=== PATIENT | female | born 1965 | race African-American/Black ===

== ENCOUNTER 2017-05-01 08:30 | Emergency (ER) | payer OTHER ==
[~2017-05-01] VITALS: Ht 165.1 cm; Wt 96.2 kg
[2017-05-01 10:16] LABS: BASO # 0.1 x10^3/uL (0.0-0.2); BASO % 1 % (0-3); EOS % 4 % (0-3); HEMATOCRIT 43.7 % (36.0-47.0); LYMPH # 2.4 x10^3/uL (1.0-4.8); LYMPH % 32 % (24-48); MEAN CORPUSCULAR HEMOGLOBIN 33 pg (25-35); MEAN CORPUSCULAR HGB CONC 34 g/dL (31-37); MEAN CORPUSCULAR VOLUME 96 fL (79-100); MONO % 8 % (0-9); NEUT % 55 % (31-73); PLATELET COUNT 215 x10^3/uL (140-400); RED BLOOD COUNT 4.57 x10^6/uL (3.50-5.40); RED CELL DISTRIBUTION WIDTH 12.2 % (11.5-14.5); WHITE BLOOD COUNT 7.6 x10^3/uL (4.0-11.0)
--- NOTE | 2017-05-01 10:24 | EKG ---
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
[2017-05-01 10:25] LABS: CALCIUM 10.1 mg/dL (8.5-10.1); GFR 70.5; POTASSIUM 4.4 mmol/L (3.5-5.1)
--- NOTE | 2017-05-01 10:25 | RAD ---
CT scan of the head without contrast 05/01/2017 Clinical history: Dizziness. Technique: Unenhanced, contiguous, 5 mm axial sections were obtained through the head. One or more of the following individualized dose reduction techniques were utilized for this study: 1. Automated exposure control. 2. Adjustment of the mA and/or kV according to patient size. 3. Use of iterative reconstruction technique. Findings: The ventricles and sulci are within normal limits in size and configuration. No area of abnormal attenuation is involving the brain parenchyma. No extra-axial fluid collection is seen. No skull fracture is noted. Impression: Negative study.
--- NOTE | 2017-05-01 10:27 | RAD ---
Exam performed: One view chest. Indication: dizziness Date of Service: 05/01/2017 11:48 AM Comparison: None available. Single AP upright portable view chest findings: Cardiomediastinal silhouette is within limits of normal. No acute infiltrates, effusion or pneumothorax is detected. The bony structures are normal. Impression: No acute cardiopulmonary process is detected.
[2017-05-01 10:31] LABS: ALBUMIN 3.5 g/dL (3.4-5.0); DIRECT BILIRUBIN 0.1 mg/dL (0.0-0.2); TOTAL BILIRUBIN 0.5 mg/dL (0.2-1.0); TOTAL PROTEIN 7.9 g/dL (6.4-8.2)
[2017-05-01 10:35] LABS: BILIRUBIN,URINE NEGATIVE (NEG); GLUCOSE,URINE NEGATIVE (NEG); NITRITE,URINE NEGATIVE (NEG); PH,URINE 5.5; PROTEIN,URINE NEGATIVE (NEG-TRACE); UROBILINOGEN,URINE 0.2 mg/dL (0.2 mg/dL)
[2017-05-01 10:48] VITALS: BP 153/79
[2017-05-01 10:51] LABS: BACTERIA,URINE MANY /HPF (0-FEW); RBC,URINE OCC /HPF (0-2); SQUAMOUS EPITHELIAL CELL,UR MANY /LPF; WBC,URINE 20-40 /HPF (0-4)
--- NOTE | 2017-05-01 11:01 | PHYS DOC ---
Past Medical History Past Medical History: Other Additional Past Medical Histor: borderline kidney disease, pancreatic cyst Past Surgical History: Other Additional Past Surgical Histo: exploratory laproscopy, eye surgery Alcohol Use: Occasionally Drug Use: None Adult General Chief Complaint Chief Complaint: DIZZY/LIGHT HEADED HPI HPI 51-year-old female presenting to the emergency department today with generalized dizziness and lightheadedness when she stands up. This is been present for about the past few days. She denies vertigo. The dizziness is intermittent. Worse when she stands up and alleviated by rest. She denies vision changes or weakness of her extremities. Review of systems is negative for vision changes confusion slurred speech facial drooping. She denies chest pain or shortness of breath. All other review of systems is negative unless otherwise noted in history of present illness. ED course: 51-year-old female presenting to the emergency department with lightheadedness when she stands up. Vital signs unremarkable. Head CT EKG and blood work obtained which were unremarkable other than hyperglycemia new onset diabetes as the patient has never been diagnosed with diabetes prior. She also has mild possible urinary tract infection. We'll follow culture. For now we will give the patient a short course of metformin to follow up with her primary care doctor in the next few days and Macrobid for her urinary tract infection. She was feeling much better on reexamination and on telemetry monitoring in the emergency room department did not demonstrate any evidence of dysrhythmias. The patient was then discharged home in stable condition to follow up with their primary care physician over the next 2-3 days. They were to return if their symptoms worsened or if they were concerned for any reason. [id number] discharge instructions and return precautions were given. Patient's questions were answered to their satisfaction. Patient is comfortable plan. Review of Systems Review of Systems SEE ABOVE. Allergies Allergies Allergies Coded Allergies Type Severity Reaction Last Updated Verified No Known Drug Allergies 05/01/17 No Physical Exam Physical Exam SEE ABOVE Constitutional: Well developed, well nourished, no acute distress, non-toxic appearance. HENT: Normocephalic, atraumatic, bilateral external ears normal, oropharynx moist, no oral exudates, nose normal. [] Eyes: PERRLA, EOMI, conjunctiva normal, no discharge. Neck: Normal range of motion, no tenderness, supple, no stridor. [] Cardiovascular:Heart rate regular rhythm, no murmur Lungs & Thorax: Bilateral breath sounds clear to auscultation [] Abdomen: Bowel sounds normal, soft, no tenderness, no masses, no pulsatile masses. Skin: Warm, dry, no erythema, no rash. [] Back: No tenderness, no CVA tenderness. Extremities: No tenderness, no cyanosis, no clubbing, ROM intact, no edema. [] Neurologic: Mental status: Awake oriented and alert x3 Cranial nerves: Extraocular movements intact, eyebrows jens bilaterally smile symmetric, uvula elevation, shoulder shrug intact, tongue protrusion normal DTRs: 2+ Sensation: Patient reports mild numbness in the right hand and right arm. Otherwise equal and symmetric and lower extremity's. Strength: 5/5 in upper and lower extremities bilaterally Psychologic: Affect normal, judgement normal, mood normal. [] Current Patient Data Vital Signs Vital Signs Date Time Temp Pulse Resp B/P (MAP) Pulse Ox O2 Delivery O2 Flow Rate FiO2 05/01/17 10:48 72 22 153/79 (103) 97 Room Air 05/01/17 08:43 98.2 98.2 Lab Values Laboratory Tests Test 05/01/17 08:41 05/01/17 10:05 Urine Collection Type Void Urine Color Yellow Urine Clarity Turbid Urine pH 5.5 Urine Specific [place] 1.020 Urine Protein Negative mg/dL (NEG-TRACE) Urine Glucose (UA) Negative mg/dL (NEG) Urine Ketones (Stick) Negative mg/dL (NEG) Urine Blood Negative (NEG) Urine Nitrite Negative (NEG) Urine Bilirubin Negative (NEG) Urine Urobilinogen Dipstick 0.2 mg/dL (0.2 mg/dL) Urine Leukocyte Esterase Moderate (NEG) Urine RBC Occ /HPF (0-2) Urine WBC 20-40 /HPF (0-4) Urine Squamous Epithelial Cells Many /LPF Urine Bacteria Many /HPF (0-FEW) Urine Mucus Slight /LPF White Blood Count 7.6 x10^3/uL (4.0-11.0) Red Blood Count 4.57 x10^6/uL (3.50-5.40) Hemoglobin 15.0 g/dL (12.0-15.5) Hematocrit 43.7 % (36.0-47.0) Mean Corpuscular Volume 96 fL (79-100) Mean Corpuscular Hemoglobin 33 pg (25-35) Mean Corpuscular Hemoglobin Concent 34 g/dL (31-37) Red Cell Distribution Width 12.2 % (11.5-14.5) Platelet Count 215 x10^3/uL (140-400) Neutrophils (%) (Auto) 55 % (31-73) Lymphocytes (%) (Auto) 32 % (24-48) Monocytes (%) (Auto) 8 % (0-9) Eosinophils (%) (Auto) 4 % (0-3) H Basophils (%) (Auto) 1 % (0-3) Neutrophils # (Auto) 4.2 x10^3uL (1.8-7.7) Lymphocytes # (Auto) 2.4 x10^3/uL (1.0-4.8) Monocytes # (Auto) 0.6 x10^3/uL (0.0-1.1) Eosinophils # (Auto) 0.3 x10^3/uL (0.0-0.7) Basophils # (Auto) 0.1 x10^3/uL (0.0-0.2) Sodium Level 137 mmol/L (136-145) Potassium Level 4.4 mmol/L (3.5-5.1) Chloride Level 100 mmol/L (98-107) Carbon Dioxide Level 28 mmol/L (21-32) Anion Gap 9 (6-14) Blood Urea Nitrogen 16 mg/dL (7-20) Creatinine 1.0 mg/dL (0.6-1.0) Estimated GFR (Cockcroft-Gault) 70.5 Glucose Level 301 mg/dL (70-99) H Calcium Level 10.1 mg/dL (8.5-10.1) Total Bilirubin 0.5 mg/dL (0.2-1.0) Direct Bilirubin 0.1 mg/dL (0.0-0.2) Aspartate Amino Transferase (AST) 16 U/L (15-37) Alanine Aminotransferase (ALT) 30 U/L (14-59) Alkaline Phosphatase 156 U/L (46-116) H Troponin I Quantitative < 0.017 ng/mL (0.000-0.055) Total Protein 7.9 g/dL (6.4-8.2) Albumin 3.5 g/dL (3.4-5.0) Lipase 186 U/L (73-393) Laboratory Tests 05/01/17 10:05 Laboratory Tests 05/01/17 10:05 EKG EKG EKG shows sinus rhythm with regular rate. Normal intervals. Leftward axis. ST segments are congruent. Not suggestive of ACS. Reviewed by myself.[] Radiology/Procedures Radiology/Procedures [] Course & Med Decision Making Course & Med Decision Making Pertinent Labs and Imaging studies reviewed. (See chart for details) [] Dragon Disclaimer Dragon Disclaimer This electronic medical record was generated, in whole or in part, using a voice recognition dictation system. Departure Departure Impression: Primary Impression: Urinary tract infection Additional Impression: Diabetes Disposition: HOME, SELF-CARE Condition: STABLE Referrals: ALISSA JAIN MD (PCP) Patient Instructions: Urinary Tract Infection Additional Instructions: Thank you for allowing us to participate in your care today. Followup with your primary care physician in 3 days if your symptoms do not improve. Call your Primary Doctor tomorrow and inform them of your visit today. If you do not have a primary care provider you can ask for a list of our primary care providers. Return to the emergency department you have any new or concerning findings. This should be evaluated by the primary care physician and any necessary consulting services for continued management within a few days after discharge. Return to emergency room if you have any new or concerning symptoms including but not limited to fever, chills, nausea, vomiting, intractable pain, any new rashes, chest pain, shortness of air, uncontrolled bleeding, difficulty breathing, and/or vision loss. Scripts Metformin Hcl (METFORMIN HCL ER) 500 Mg Tab.er.24h 500 MG PO BIDWMEALS, #8 TAB Prov: APURVA GUILLEN MD 05/01/17 Nitrofurantoin Monohyd/M-Cryst (MACROBID 100 MG CAPSULE) 100 Mg Capsule 1 CAP PO BID, #10 CAP Prov: APURVA GUILLEN MD 05/01/17 Problem Qualifiers APURVA GUILLEN MD May 01, 2017 11:01
[2017-05-01] MEDS ORDERED: NITR100C62 PO (11:02)
[2017-05-01] MEDS ORDERED: METF500T9 PO (11:14)
== END 2017-05-01 11:24 | disposition home or self-care (01) ==
LOC: ER 08:30
DX: E11.9 Type 2 diabetes mellitus without complications (principal); N39.0 Urinary tract infection, site not specified
CPT/HCPCS: 36415; 70450; 71010; 80048; 80076; 81001; 83690; 84484; 85025; 87086; 93005; 99285-25